=== PATIENT | male | born 1945 | race Caucasian/White ===

== ENCOUNTER 2022-09-28 09:59 | Outpatient (CLI) | payer MEDICARE, BC ==
[2022-09-28 12:58] LABS: #Eosinphils 0.1 10x3/uL (0.0-0.5); #Monocytes 0.4 10x3/uL (0.0-1.1); #Neutrophils 3.9 10x3/uL (1.5-8.4); %Basophils 0.5 % (0.0-2.0); %Eosinophils 1.4 % (0.0-6.0); %Lymphocytes 23.4 % (18.0-47.0); %Monocytes 6.8 % (0.0-10.0); %Neutrophils 67.2 % (40.0-75.0); Hemoglobin 14.4 g/dL (13.5-17.5); Mean Corpuscular HGB CONC 34.3 g/dL (32.0-36.0); Mean Corpuscular Volume 93.3 fl (81.2-95.1); Mean Platelet Volume 11.3 fl (7.4-10.4); Platelet Count 159 10x3/uL (150-450); RBC Distribution Width 12.5 % (11.5-14.5); White Blood Cell (WBC) Count 5.9 10x3/uL (3.5-10.5)
[2022-09-28 13:33] LABS: Anion Gap 15 mmol/L (10-20); BUN (Urea Nitrogen) 14 mg/dL (8.4-25.7); Calc. Creatinine Clearance 0 mL/min (70-130); Carbon Dioxide 27 mmol/L (23-31); Chloride 102 mmol/L (98-107); Potassium 4.9 mmol/L (3.5-5.1); Sodium 139 mmol/L (136-145)
[2022-09-28 13:34] LABS: Calcium 9.8 mg/dL (7.8-10.44); Estimated GFR 74; Glucose 118 mg/dL (83-110)
== END 2022-09-28 10:00 | disposition home or self-care (01) ==
LOC: LABBT 09:59
PROVIDERS: ATTEND Specialist
DX: Z01.818 Encounter for other preprocedural examination (principal); K40.20 Bilateral inguinal hernia, without obstruction or gangrene, not specified as recurrent
CPT/HCPCS: 71046; 80048; 85025; 93005; 93010

== ENCOUNTER 2022-10-03 11:15 | Day surgery (SDC) | payer MEDICARE, BC ==
[2022-09-28 10:55] VITALS: BMI 26.6
[2022-10-03] MEDS ORDERED: Acetaminophen 500 MG TAB ONE (12:13)
[2022-10-03] MEDS ORDERED: Ketorolac Tromethamine 30 MG/ML VIAL ONE (12:13)
[2022-10-03] MEDS ORDERED: Bupivacaine/Epinephrine 0.25% 30 ML VIAL ONE (13:50)
[2022-10-03] MEDS ORDERED: fentaNYL PF 100 MCG/2 ML SYRINGE ONE ×2 (14:02→15:34)
[2022-10-03] MEDS ORDERED: SUGAMMADEX SODIUM 200 MG/2 ML VIAL ONE ×2 (14:02→15:34)
[2022-10-03] MEDS ORDERED: CEFAZOLIN 2 GM VIAL ONE (14:07)
[2022-10-03] MEDS ORDERED: Sodium Chloride 0.9% 100 ML ONE (14:07)
[2022-10-03] MEDS ORDERED: PROPOFOL 200 MG/20 ML VIAL ONE (14:16)
[2022-10-03] MEDS ORDERED: Rocuronium Bromide 10 MG/ML (10ML VIAL) ONE (14:16)
[2022-10-03] MEDS ORDERED: Lidocaine 1% PF 5 ML VIAL ONE (14:16)
== END 2022-10-03 18:43 | disposition home or self-care (01) ==
LOC: SDC 11:15
PROVIDERS: ATTEND Specialist
PROC: 0YUA4JZ Supplement Bilateral Inguinal Region with Synthetic Substitute, Percutaneous Endoscopic Approach (ICD-10-PCS; principal; 2022-10-03)
PROC: 8E0W4CZ Robotic Assisted Procedure of Trunk Region, Percutaneous Endoscopic Approach (ICD-10-PCS; 2022-10-03)
DX: K40.20 Bilateral inguinal hernia, without obstruction or gangrene, not specified as recurrent (principal); I10 Essential (primary) hypertension; G25.0 Essential tremor; Z85.820 Personal history of malignant melanoma of skin; Z79.899 Other long term (current) drug therapy
CPT/HCPCS: J1885; J2704; J3490